=== PATIENT | male | born 1965 | race Caucasian/White ===

== ENCOUNTER 2019-05-12 10:11 | Emergency (ER) | payer BC ==
[2019-05-12 11:00] VITALS: BP 137/85
--- NOTE | 2019-05-12 11:34 | UC ---
FLU HPI - HPI Summary HPI Summary: chance that 54-year-old male presents with flulike illness. He's had some bodyaches 1 day with some increased cough. He is also some fatigue. No chest pains palpitations or shortness of breath. His phone number currently has influenza. He has a history of diabetes and chronic kidney disease and wants to make sure it does not get worse. Exertion worsen symptoms. And rest and persistent symptoms. - History of Current Complaint Chief Complaint: UCRespiratory Stated Complaint: HEADACHE CHEST CONGESTION Time Seen by Provider: 05/12/19 11:08 Pain Intensity: 0 - Allergy/Home Medications Allergies/Adverse Reactions: Allergies Allergy/AdvReac Type Severity Reaction Status Date / Time No Known Allergies Allergy Verified 05/12/19 11:00 Home Medications: Home Medications Atorvastatin* [Lipitor*] 20 mg PO DAILY 07/28/18 [History Confirmed 05/12/19] Insulin LISPRO* [HumaLOG*] 0 units SUBCUT DIRECTED 07/28/18 [History Confirmed 05/12/19] Ramipril CAP* [Altace CAP*] 10 mg PO DAILY 07/28/18 [History Confirmed 05/12/19] Torsemide TAB* [Demadex*] 100 mg PO DAILY 07/28/18 [History Confirmed 05/12/19] Oseltamivir CAP* [Tamiflu CAP*] 75 mg PO BID #10 cap 05/12/19 [Rx] PMH/Surg Hx/FS Hx/Imm Hx Previously Healthy: Yes Endocrine History: Diabetes - Surgical History Surgical History: Yes Surgery Procedure, Year, and Place: tonsils, left knee arthroscopy; right hand with metal plate - Family History Known Family History: Positive: Hypertension - Social History Alcohol Use: Rare Substance Use Type: Excessive Caffeine Smoking Status (MU): Never Smoked Tobacco Review of Systems All Other Systems Reviewed And Are Negative: Yes Constitutional: Positive: Chills, Fatigue ENT: Positive: Nasal Discharge Musculoskeletal: Positive: Myalgia Neurological/Mental Status: Positive: Headache Is Patient Immunocompromised?: Yes Physical Exam Triage Information Reviewed: Yes Appearance: No Pain Distress Vital Signs: Initial Vital Signs Temp 97.9 F 05/12/19 10:52 Pulse 79 05/12/19 10:52 Resp 18 05/12/19 10:52 BP 137/85 05/12/19 10:52 Pulse Ox 100 05/12/19 10:52 Vital Signs Reviewed: Yes Eye Exam: Normal ENT Exam: Normal Dental Exam: Normal Neck exam: Normal Neck: Positive: 1 Respiratory Exam: Normal Cardiovascular Exam: Normal Abdominal Exam: Normal Musculoskeletal Exam: Normal Neurological Exam: Normal Psychological Exam: Normal Skin Exam: Normal Flu Course/Dx - Differential Dx/Diagnosis Differential Diagnosis/HQI/PQRI: Influenza Provider Diagnosis: Influenza Discharge ED - Sign-Out/Discharge Documenting (check all that apply): Patient Departure All imaging exams completed and their final reports reviewed: No Studies - Discharge Plan Condition: Good Disposition: HOME Prescriptions: Oseltamivir CAP* [Tamiflu CAP*] 75 mg PO BID #10 cap Patient Education Materials: Influenza (DC) Forms: *Work Release Referrals: Luan Muniz MD [Primary Care Provider] - 3 Days - Billing Disposition and Condition Condition: GOOD Disposition: Home
== END 2019-05-12 11:33 | disposition home or self-care (01) ==
LOC: UCCORT 10:11
DX: J11.1 Influenza due to unidentified influenza virus with other respiratory manifestations (principal); E11.9 Type 2 diabetes mellitus without complications; Z79.4 Long term (current) use of insulin
CPT/HCPCS: 99212; G0463

== ENCOUNTER 2019-09-09 09:05 | Observation (INO) ==
[2019-09-09] MEDS ORDERED: Ondansetron 4 mg VIAL 2 MG/ML 2 ml VIAL IV ONE (09:28)
[2019-09-09] MEDS ORDERED: NS 0.9% 500 ml BAG 500 ML IV ONE ×2 (09:29→09:48)
[2019-09-09 09:59] LABS: ABS Basophils 0.1 10^3/ul (0-0.2); ABS Eosinophils 0.2 10^3/ul (0-0.6); ABS Lymphocytes 0.9 10^3/ul (1.0-4.8); ABS Monocytes 0.7 10^3/ul (0-0.8); Eosinophil % 1.4 %; Hematocrit 36 % (42-52); Hemoglobin 12.5 g/dL (14.0-18.0); Lymphocyte % 7.5 %; Mean Corpuscular HGB Conc 35 g/dL (31-36); Mean Corpuscular Hemoglobin 30 pg (27-31); Mean Corpuscular Volume 86 fL (80-94); Mean Platelet Volume 7.4 fL (7.4-10.4); Nucleated Red Blood Cells % 0.1; Platelet Count 472 10^3/uL (150-450); Red Blood Count 4.16 10^6 /uL (4.18-5.48); Red Cell Distribution Width 13 % (10-15); White Blood Count 12.5 10^3/uL (3.5-10.8)
[2019-09-09] MEDS ORDERED: Metoclopramide 5 MG/ML VIAL (10 mg) IV SLOW PU ONE (10:07)
[2019-09-09 10:15] LABS: Albumin/Globulin Ratio 1.3 (1-3); BUN/Creatinine Ratio 24.3 (8-20); Calcium 9.5 mg/dL (8.6-10.3); EGFR African American 41.1 (>60); EGFR Non-African American 33.9 (>60); Globulin 3.1 g/dL (2-4); Potassium 4.1 mmol/L (3.5-5.0); Total Bilirubin 0.4 mg/dL (0.2-1.0); Total Protein 7.1 g/dL (6.4-8.9)
[2019-09-09 10:58] LABS: Urine Appearance Clear; Urine Bilirubin Negative (Negative); Urine Blood Negative (Negative); Urine Color Straw; Urine Glucose 2+(150 mg/dL) (Negative); Urine Ketones Trace (Negative); Urine Nitrite Negative (Negative); Urine Protein 1+(30 mg/dL) (Negative); Urine Urobilinogen Negative (Negative)
[2019-09-09 11:00] LABS: Urine Bacteria Absent (Absent); Urine Red Blood Cell Absent (Absent); Urine White Blood Cell Absent (Absent)
[2019-09-09] MEDS ORDERED: NS 0.9% 1000 ml BAG 1,000 ML IV ONE (11:07)
[2019-09-09 13:34] LABS: C Reactive Protein 13.01 mg/L (<8.01)
[2019-09-09] MEDS ORDERED: Ondansetron 4 mg VIAL 2 MG/ML 2 ml VIAL IV PRN (13:47)
[2019-09-09] MEDS: NS 0.9% 1000 ml BAG 1,000 ML IV SCH (15:55)
[2019-09-09] MEDS ORDERED: Prochlorperazine 5 mg/ml 2 ml VIAL (10 mg) IV PRN (19:38)
[2019-09-09] MEDS: Metoclopramide 5 MG/ML VIAL (10 mg) IV PRN (20:08)
[2019-09-10] MEDS: Metoclopramide 5 MG/ML VIAL (10 mg) IV PRN (05:20)
[2019-09-10] MEDS: NS 0.9% 1000 ml BAG 1,000 ML IV SCH (05:22)
[2019-09-10 05:44] LABS: ABS Basophils 0.1 10^3/ul (0-0.2); ABS Eosinophils 0.1 10^3/ul (0-0.6); ABS Lymphocytes 1.2 10^3/ul (1.0-4.8); ABS Monocytes 1.2 10^3/ul (0-0.8); Eosinophil % 0.5 %; Hematocrit 35 % (42-52); Hemoglobin 11.6 g/dL (14.0-18.0); Lymphocyte % 7.8 %; Mean Corpuscular HGB Conc 34 g/dL (31-36); Mean Corpuscular Hemoglobin 29 pg (27-31); Mean Corpuscular Volume 87 fL (80-94); Mean Platelet Volume 7.5 fL (7.4-10.4); Nucleated Red Blood Cells % 0.1; Platelet Count 488 10^3/uL (150-450); Red Blood Count 3.98 10^6 /uL (4.18-5.48); Red Cell Distribution Width 13 % (10-15); White Blood Count 15.6 10^3/uL (3.5-10.8)
[2019-09-10 06:02] LABS: BUN/Creatinine Ratio 18.6 (8-20); Calcium 8.9 mg/dL (8.6-10.3); EGFR African American 54.6 (>60); EGFR Non-African American 45.1 (>60)
[2019-09-10 15:58] VITALS: BP 136/73
== END 2019-09-10 17:25 | disposition home or self-care (01) ==
LOC: MED 09:05 → ED 09:05 → MED 15:39
PROVIDERS: ADMIT Internal Medicine; ATTEND Internal Medicine

== ENCOUNTER 2019-09-10 21:40 | Inpatient (IN) ==
[2019-09-10] MEDS ORDERED: Famotidine IV 10 MG/ML 2 ml VIAL (20 mg) IV ONE (21:45)
[2019-09-10] MEDS ORDERED: NS 0.9% 1000 ml BAG 1,000 ML IV ONE (21:45)
[2019-09-10 22:15] LABS: ABS Eosinophils 0.1 10^3/ul (0-0.6); ABS Lymphocytes 0.7 10^3/ul (1.0-4.8); ABS Monocytes 0.7 10^3/ul (0-0.8); Eosinophil % 0.6 %; Hematocrit 36 % (42-52); Hemoglobin 12.5 g/dL (14.0-18.0); Lymphocyte % 4.7 %; Mean Corpuscular HGB Conc 35 g/dL (31-36); Mean Corpuscular Hemoglobin 30 pg (27-31); Mean Corpuscular Volume 85 fL (80-94); Mean Platelet Volume 7.6 fL (7.4-10.4); Platelet Count 469 10^3/uL (150-450); Red Cell Distribution Width 13 % (10-15); White Blood Count 15.7 10^3/uL (3.5-10.8)
[2019-09-10 22:37] LABS: Albumin 3.9 g/dL (3.2-5.2); Albumin/Globulin Ratio 1.3 (1-3); BUN/Creatinine Ratio 16.3 (8-20); C Reactive Protein 7.82 mg/L (<8.01); Calcium 9.5 mg/dL (8.6-10.3); EGFR African American 46.8 (>60); EGFR Non-African American 38.7 (>60); Magnesium 1.9 mg/dL (1.9-2.7); Total Bilirubin 0.5 mg/dL (0.2-1.0); Total Protein 6.9 g/dL (6.4-8.9)
[2019-09-10 23:59] LABS: Urine Appearance Clear; Urine Bilirubin Negative (Negative); Urine Blood 1+ (Negative); Urine Color Straw; Urine Glucose 1+(50 mg/dL) (Negative); Urine Ketones Trace (Negative); Urine Nitrite Negative (Negative); Urine Protein 2+(100 mg/dL) (Negative); Urine Specific Gravity 1.009 (1.010-1.030); Urine Urobilinogen Negative (Negative)
[2019-09-11] MEDS ORDERED: Metoclopramide 5 MG/ML VIAL (10 mg) IV SLOW PU ONE (00:05)
[2019-09-11 00:11] LABS: Urine Bacteria 1+ (Absent); Urine Red Blood Cell Trace(0-2/hpf) (Absent); Urine White Blood Cell Absent (Absent)
[2019-09-11] MEDS: NS 0.9% 1000 ml BAG 1,000 ML IV SCH ×2 (02:04→16:33)
[2019-09-11] MEDS ORDERED: Metoclopramide 5 MG/ML VIAL (10 mg) IV SLOW PU SCH (07:30)
[2019-09-11] MEDS: Ondansetron 4 mg VIAL 2 MG/ML 2 ml VIAL IV PRN (08:25)
[2019-09-12] MEDS: Ondansetron 4 mg VIAL 2 MG/ML 2 ml VIAL IV PRN (05:37)
[2019-09-12] MEDS: NS 0.9% 1000 ml BAG 1,000 ML IV SCH ×2 (05:37→22:07)
[2019-09-12 05:52] LABS: ABS Basophils 0.1 10^3/ul (0-0.2); ABS Eosinophils 0.1 10^3/ul (0-0.6); ABS Monocytes 1.3 10^3/ul (0-0.8); Eosinophil % 0.8 %; Hematocrit 36 % (42-52); Hemoglobin 12.2 g/dL (14.0-18.0); Lymphocyte % 5.7 %; Mean Corpuscular HGB Conc 35 g/dL (31-36); Mean Corpuscular Hemoglobin 30 pg (27-31); Mean Corpuscular Volume 86 fL (80-94); Mean Platelet Volume 7.3 fL (7.4-10.4); Platelet Count 555 10^3/uL (150-450); Red Blood Count 4.14 10^6 /uL (4.18-5.48); Red Cell Distribution Width 13 % (10-15)
[2019-09-12 06:11] LABS: BUN/Creatinine Ratio 12.8 (8-20); Calcium 9.1 mg/dL (8.6-10.3); EGFR African American 60.2 (>60); EGFR Non-African American 49.7 (>60); Potassium 3.5 mmol/L (3.5-5.0)
[2019-09-12] MEDS: Pantoprazole VIAL 40 MG VIAL IV SCH ×2 (10:58→22:07)
[2019-09-12] MEDS ORDERED: fentaNYL 100 mcg/2 ml 50 MCG/ML VIAL ONE (14:22)
[2019-09-12] MEDS ORDERED: Midazolam 10 mg/10 ml VIAL 1 mg/ml 10 ml VIAL (10 mg) ONE (14:23)
[2019-09-13 07:15] LABS: ABS Basophils 0.1 10^3/ul (0-0.2); ABS Eosinophils 0.2 10^3/ul (0-0.6); ABS Lymphocytes 0.7 10^3/ul (1.0-4.8); ABS Monocytes 0.9 10^3/ul (0-0.8); Eosinophil % 0.9 %; Hematocrit 33 % (42-52); Hemoglobin 11.6 g/dL (14.0-18.0); Lymphocyte % 4.5 %; Mean Corpuscular HGB Conc 35 g/dL (31-36); Mean Corpuscular Hemoglobin 30 pg (27-31); Mean Corpuscular Volume 85 fL (80-94); Mean Platelet Volume 7.9 fL (7.4-10.4); Platelet Count 454 10^3/uL (150-450); Red Blood Count 3.89 10^6 /uL (4.18-5.48); Red Cell Distribution Width 13 % (10-15); White Blood Count 16.5 10^3/uL (3.5-10.8)
[2019-09-13 07:46] LABS: BUN/Creatinine Ratio 10.7 (8-20); Calcium 8.5 mg/dL (8.6-10.3); EGFR African American 69.3 (>60); EGFR Non-African American 57.2 (>60); Potassium 3.2 mmol/L (3.5-5.0)
[2019-09-13] MEDS: Ondansetron 4 mg VIAL 2 MG/ML 2 ml VIAL IV PRN ×2 (08:46→17:42)
[2019-09-13] MEDS: Pantoprazole VIAL 40 MG VIAL IV SCH (11:54)
[2019-09-13] MEDS: NS 0.9% 1000 ml BAG 1,000 ML IV SCH (13:10)
[2019-09-13 13:55] LABS: Magnesium 1.8 mg/dL (1.9-2.7)
[2019-09-13] MEDS ORDERED: Potassium Chlor 20 meq TAB.ER PO ONE (17:29)
[2019-09-13] MEDS ORDERED: HYDROcodone/ACETAMIN 5/325 mg TAB PO ONE (17:50)
[2019-09-13 18:25] VITALS: BP 151/81
== END 2019-09-13 18:50 | disposition home or self-care (01) | DRG 249 ==
LOC: MED 21:40 → ED 21:40 → OBSVTOIN 09-11 00:34 → MED 09-11 01:55
PROVIDERS: ADMIT Internal Medicine; ATTEND Internal Medicine